=== PATIENT | female | born 1995 | race Caucasian/White ===

== ENCOUNTER 2021-11-10 14:03 | Emergency (ER) | payer MEDICAID ==
[~2021-11-10] VITALS: Ht 160 cm; Wt 57.7 kg
[2021-11-10 14:06] VITALS: BP 122/95
--- NOTE | 2021-11-10 14:12 | NUR ---
pt ambulated to bed 01.
--- NOTE | 2021-11-10 14:32 | NUR ---
26 Y/O FEMALE C/O VAGINAL BLEEDING SINCE 10/15/21. PT C/O ABDOMINAL PAIN. REFERRED BY DR GREENWOOD FOR ECTOPIC . DENIES FEVER/CHILLS. DENIES N/V. PMH: ECTOPIC NKA
--- NOTE | 2021-11-10 14:48 | NUR ---
IV ESTABLISHED TO RIGHT AC 18G, GOOD BLOOD RETURN. COLLECTED BLOOD. COLLECTED WALTER BRENNAN WALKED TO LAB.
--- NOTE | 2021-11-10 14:57 | NUR ---
US AT PT BEDSIDE.
[2021-11-10] MEDS ORDERED: ONDANSETRON 4 MG/2 ML VIAL IVP ONE (15:00)
[2021-11-10] MEDS ORDERED: MORPHINE SULFATE 4 MG/ML SYR IVP ONE ×2 (15:00→17:55)
[2021-11-10 15:23] LABS: BASOPHILS % (AUTO) 0.3 % (0.0-2.0); EOSINOPHILS % (AUTO) 0.3 % (0.0-4.0); HEMATOCRIT 36.3 % (36-48); LYMPHOCYTES # (AUTO) 2.3 K/uL (2.5-16.5); LYMPHOCYTES % (AUTO) 21.9 % (20.5-51.1); MEAN CORPUSCULAR HEMOGLOBIN 28 pg (27-31); MEAN CORPUSCULAR HGB CONC 33 g/dL (33-37); MEAN CORPUSCULAR VOLUME 84.5 fL (80-94); MONOCYTES # (AUTO) 0.7 K/uL (0.8-1.0); NEUTROPHILS # (AUTO) 7.4 K/uL (1.8-7.7); NEUTROPHILS % (AUTO) 70.5 % (42.2-75.2); PLATELET COUNT (AUTO) 272 K/uL (140-450); RED CELL DISTRIBUTION WIDTH 13.3 % (11.6-13.7); WHITE BLOOD COUNT (AUTO) 10.5 K/uL (4.8-10.8)
[2021-11-10 15:47] LABS: ANION GAP 14.7 (8-16); CARBON DIOXIDE 26.8 mmol/L (21-32); CREATININE 0.9 mg/dL (0.6-1.3); POTASSIUM 3.5 mmol/L (3.5-5.1)
[2021-11-10] MEDS ORDERED: fentaNYL citrate 0.05 MG/ML VIAL IVP ONE (16:25)
--- NOTE | 2021-11-10 16:47 | NUR ---
PT RESTING IN BED, EYES CLOSED, VISIBLE EQUAL RISE AND FALL OF CHEST.
[2021-11-10] MEDS ORDERED: METHOTREXATE 100 MG/4 ML VIAL IM ONE (17:15)
--- NOTE | 2021-11-10 17:54 | NUR ---
PT IN ROOM, HOB ELEVATED, AT PT BEDSIDE.
[2021-11-10] MEDS ORDERED: KETOROLAC 15 MG/ML VIAL IVP ONE (17:55)
[2021-11-10 18:05] VITALS: BP 127/81
[2021-11-10] MEDS ORDERED: ONDA-188 SL (18:24)
[2021-11-10] MEDS ORDERED: ACET-5636 PO (18:24)
--- NOTE | 2021-11-10 18:41 | NUR ---
Patient discharged with v/s stable. Written and verbal after care instructions FOR ECTOPIC given and explained. Patient alert, oriented and verbalized understanding of instructions. Ambulatory with steady gait. All questions addressed prior to discharge. ID band removed. Patient advised to follow up with PMD. Rx of OXYCODONE AND ONDANSETRON given. Opportunity to ask questions provided and answered.
--- NOTE | 2021-11-10 18:47 | NUR ---
The patient's care was reviewed and supervised by Milagro Mcdowell RN.
== END 2021-11-10 18:45 | disposition home or self-care (01) ==
LOC: MED 14:03
DX: O00.90 Unspecified ectopic pregnancy without intrauterine pregnancy (principal); Z20.822 Contact with and (suspected) exposure to COVID-19; Z79.899 Other long term (current) drug therapy; Z79.891 Long term (current) use of opiate analgesic; Z3A.08 8 weeks gestation of pregnancy
CPT/HCPCS: 36415; 76802; 80053; 81002; 81025; 84702; 85025; 87426; 96372; 96374; 96375; 99284; J2270; J2405; J3010; J9260; Q0092; J1885

== ENCOUNTER 2022-03-19 21:50 | Emergency (ER) | payer SELFPAY ==
[~2022-03-19 21:50] MED LIST: ACET-5636 PO; ONDA-188 SL
--- NOTE | 2022-03-19 22:05 | NUR ---
per admin, pt left lobby at this time
== END 2022-03-19 22:06 | disposition left against medical advice (07) ==
LOC: MED 21:50
DX: Z53.21 Procedure and treatment not carried out due to patient leaving prior to being seen by health care provider (principal)